=== PATIENT | male | born 1955 | race Caucasian/White ===

== ENCOUNTER → 2017-08-03 | Outpatient (REF) ==
[~2017-08-03] MED LIST: ASPIRIN 32325 MG/TA1 PO; ASPIRIN 32325 MG/TAB PO; ASPIRIN E.C. 8181 MG PO; LORTAB 10/500 51 TAB PO; MILLIPRED5 MG; NITROSTAT0.4 MG/TAB SL; NORVASC 5MG5 MG/TAB PO; NORVASC2.5 MG PO; PERCOCET 325 MG1 TA2 PO; PLAVIX 75MG TAB75 MG PO; PREDNISONE 5MG5 MG PO; PREDNISONE1 MG PO; RESTORIL 1515 MG/CAP PEG; RESTORIL 1515 MG/CAP PO; RITALIN 20M20 MG/TAB PO; RITALIN LA20 MG PO; VALIUM 5MG T5 MG/TAB PO
== END ==
LOC: ZLAB.WCH 09:05
DX: Z01.89 Encounter for other specified special examinations (principal)

== ENCOUNTER → 2018-01-10 | Outpatient (REF) ==
[2018-01-10 18:48] LABS: THYROID STIMULATING HORMONE 1.27 uIU/mL (0.465-4.680)
[2018-01-10 19:31] LABS: PSA-TOTAL 0.69 ng/mL (0-4)
== END ==
LOC: ZLAB.WCH 17:53
PROVIDERS: Internal Medicine
DX: Z01.89 Encounter for other specified special examinations (principal)
CPT/HCPCS: G0103

== ENCOUNTER → 2018-01-18 | Outpatient (CLI) | payer MEDICARE, BC | LOC: COL.PUL 07:38 | DX: R60.9 Edema, unspecified (principal); Z87.891 Personal history of nicotine dependence ==

== ENCOUNTER → 2018-01-29 | Outpatient (CLI) | payer MEDICARE, BC ==
[~2018-01-29] VITALS: Ht 188.1 cm; Wt 65.9 kg
[~2018-01-29] MED LIST changes: +CEPHALEXIN500 M1 PO; +DILAUDID 4MG TAB4 MG PO; +HORIZANT300 MG PO; +PROAIR HFA0.09 MG/AC IH; +SYNTHROID0.05 MG/TA PO; +VITAMIN D32000 I1 PO
[2018-01-29 11:02] VITALS: BP 130/82; PULSE 91
[2018-01-29 12:15] VITALS: BP 137/73; PULSE 74
[2018-01-29 12:20] VITALS: BP 130/71; PULSE 90
[2018-01-29 12:22] VITALS: BP 137/70; PULSE 88
[2018-01-29 12:23] VITALS: BP 139/76; PULSE 86
== END ==
LOC: COL.CARD 10:16
DX: I25.10 Atherosclerotic heart disease of native coronary artery without angina pectoris (principal)
CPT/HCPCS: A9502; J2785